=== PATIENT | male | born 1975 | race Two or more races ===

== ENCOUNTER 2017-12-13 07:31 | Inpatient (IN) | payer OTHER ==
[~2017-12-13] VITALS: Ht 160 cm; Wt 63.5 kg
[2017-12-13] VITALS (10 sets, daily range): BP systolic 138–163; BP diastolic 93–104
--- NOTE | 2017-12-13 06:14 | Immediate Post-Op Evaluation ---
Immediate Post-Op Evalulation Immediate Post-Op Evalulation Procedure: ACDF C4-5, C5-6 Date of Evaluation: Dec 13, 2017 Time of Evaluation: 11:52 IV Fluids: 1000 LR Blood Products: 0 Estimated Blood Loss: 50 Urinary Output: 0 Blood Pressure Systolic: 144 Blood Pressure Diastolic: 102 Pulse Rate: 86 Respiratory Rate: 16 O2 Sat by Pulse Oximetry: 100 Temperature (Fahrenheit): 97.6 Pain Score (1-10): 3 Nausea: No Vomiting: No Complications 0 Patient Status: awake, reacts, patent, extubated, none Hydration Status: adequate Dru Grams Ancef IV Given Within 1 Hr of Incision: Yes Time Given: 08:26 Don Apple MD Dec 13, 2017 06:14
[~2017-12-13 07:31] MED LIST: Acetaminophen (Non formulary) 100 ML IV ONE; Atropine Inj 1mg/10ml Syr IV PRN; Bacitracin 50000 Units Vial ONE; Dexamethasone 20mg/5ml IVP ONE; DiphenhydrAMINE 50mg/ml Inj IVP PRN; HYDROcodone/Acetamin 7.5/325 tab ORAL PRN; Hydromorphone 0.5mg/0.5ml inj IVP PRN; Ketorolac 30mg Inj IV PRN; LORazepam Inj 2mg/ml 1ml IV PRN; LR 1000ml 1,000 ML IVLG SCH; Labetalol 5mg/ml 20ml vial IV PRN; Lidocaine 1% Plain 30 ml INJ ONE; METFORMIN HCL500 M1 ORAL; Midazolam 2mg/2ml Inj IVP PRN; NORCO 10-325 T1 EACH ORAL; Norco 5mg/325mg tab ORAL PRN; Thrombin 5000 units TOPIC ONE; Vancomycin 1gm inj IVPB ONE; ceFAZolin sod 1 GM in NS 55 ML IVPB ONE; fentaNYL 100 mcg/2 mL IV PRN; oxyCODONE HCL/Acetaminophen 5/325mg ORAL PRN
[2017-12-13] MEDS ORDERED: Neostigmine 1mg/ml 10ml Inj ONE (08:00)
[2017-12-13] MEDS ORDERED: Lidocaine 1% Plain 30 ml INJ ONE (08:00)
[2017-12-13] MEDS ORDERED: Ketamine 500mg Inj ONE (08:00)
[2017-12-13] MEDS ORDERED: Lidocaine 1% MPF 10mg/ml 5ml ONE (08:00)
[2017-12-13] MEDS ORDERED: Midazolam 2mg/2ml Inj ONE (08:00)
[2017-12-13] MEDS ORDERED: Zemuron 50mg/5ml Inj IV ONE (08:00)
[2017-12-13] MEDS ORDERED: Labetalol 5mg/ml 20ml vial IV ONE (08:00)
[2017-12-13] MEDS ORDERED: fentaNYL 100 mcg/2 mL IV ONE (08:00)
[2017-12-13] MEDS ORDERED: Propofol 1,000mg/ 100ml btl IV ONE (08:00)
[2017-12-13] MEDS ORDERED: NS Irrig 1000ml ONE (08:00)
[2017-12-13] MEDS ORDERED: LR 1000ml ONE (08:00)
[2017-12-13] MEDS ORDERED: Sterile Water Irrig 1000ml IRRIG ONE (08:00)
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
--- NOTE | 2017-12-13 08:15 | Anethesia Preoperative Eval ---
Anesthesia Pre-op PMH/ROS General Date of Evaluation: Dec 13, 2017 Time of Evaluation: 08:01 Anesthesiologist: Ambika ASA Score: ASA 3 Mallampati Score Class I : Soft palate, uvula, fauces, pillars visible Class II: Soft palate, uvula, fauces visible Class III: Soft palate, base of uvula visible Class IV: Only hard plate visible Mallampati Classification: Class II Surgeon: Annette Diagnosis: Neck Pain Surgical Procedure: ACDF C4-5, C5-6 Anesthesia History: none Social History: current smoker Family History: no anesthesia problems Allergies: Coded Allergies: No Known Allergies (Unverified , 11/19/17) Medications: see eMAR Past Medical History Cardiovascular: Reports: HTN, other - HL Pulmonary: Reports: other - Smoker Endocrine: Reports: DM PSxH Narrative: Discogram Anesthesia Pre-op Phys. Exam Physician Exam Last Vital Signs Date Time Temp Pulse Resp B/P (MAP) Pulse Ox O2 Delivery O2 Flow Rate FiO2 12/13/17 07:56 97.7 83 20 144/93 98 Room Air 97.7 Constitutional: NAD Neurologic: CN 2-12 intact Cardiovascular: RRR Respiratory: CTA Gastrointestinal: S/NT/ND Airway Exam Mallampati Score: Class II MO: full ROM: limited Teeth: missing, intact, broken Anesthesia Pre-op A/P Risk Assessment & Plan Assessment: ASA 3 Plan: GA, BIS, GlideScope Status Change Before Surgery: No Pre-Antibiotics Dru Grams Ancef IV Given Within 1 Hr of Incision: Yes Time Given: 08:26 Don Apple MD Dec 13, 2017 08:15
--- NOTE | 2017-12-13 08:17 | 48 Hour Post Anesthesia Eval ---
Post Anesthesia Evaluation Procedure: ACDF C4-5, C5-6 Date of Evaluation: Dec 13, 2017 Time of Evaluation: 13:56 Blood Pressure Systolic: 151 0: 92 Pulse Rate: 82 Respiratory Rate: 18 Temperature (Fahrenheit): 98.2 O2 Sat by Pulse Oximetry: 98 Airway: patent Nausea: No Vomiting: No Pain Intensity: 3 Hydration Status: adequate Cardiopulmonary Status: Stable Mental Status/LOC: patient returned to baseline Follow-up Care/Observations: 0 Post-Anesthesia Complications: 0 Follow-up care needed: ready to discharge Don Apple MD Dec 13, 2017 08:17
--- NOTE | 2017-12-13 11:14 | Brief Operative Note ---
Immediate Post Operative Note Operative Note Pre-op Diagnosis: Post trauma neck pain, neurologic deficit Procedure: hemivertebrectomy C4, C5, C6 Tritanium Interbody graft, autograft/bio-4 fusion placement C4-5, C5-6 xray ssep emg anterior internal plate fixation correction deformity decompression high power magnification disection Post-op Diagnosis: same as pre-op Findings: consistent w/pre-op dx studies Surgeon: Annette Ph.D., M.D. Biology Specimen Technician: Anthony MEJIA Anesthesiologist: Ambika BROWN Anesthesia: general Specimen: yes Complications: none Condition: stable Fluids: anesthesia Estimated Blood Loss: minimal Drains: none Implant(s) used?: Yes DEVON FRANKEL Dec 13, 2017 11:14
--- NOTE | 2017-12-13 14:09 | Diagnostic Imaging Report ---
Indication: Left upper extremity pain, neck pain, intraoperative Technique: Intraoperative images Comparison: none Findings: Intraoperative images demonstrate surgical tool projected in the anterior aspect of the C5-6 disc. Subsequent images document anterior fusion with placement of disc spacers from through C6 Impression: Intraoperative imaging, as described
[2017-12-13] MEDS ORDERED: Chloraseptic Spray 20mL Bottle ORAL PRN (15:27)
[2017-12-13] MEDS ORDERED: HYDROcodone/Acetamin 10/325 tab ORAL PRN (15:29)
[2017-12-13] MEDS ORDERED: LORazepam 0.5mg tab ORAL PRN (15:29)
[2017-12-13] MEDS ORDERED: Naloxone 0.4mg/ml Inj IVP PRN (15:29)
[2017-12-13] MEDS ORDERED: D5 1/2NS 1,000 ML IV SCH (15:29)
[2017-12-13] MEDS ORDERED: HYDROmorphone 1mg/ml Carpuject SUBQ PRN (15:30)
[2017-12-13] MEDS ORDERED: Chloraseptic Spray 20mL Bottle ORAL ONE (16:30)
[2017-12-13] MEDS ORDERED: ceFAZolin sod 2 GM in D5W 110 ML IV SCH (16:30)
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
--- NOTE | 2017-12-13 20:00 | Operative Note - Dictated ---
SURGEON: Juan Bryant, Ph.D., M.D. BACK FILLER OPERATOR: JACKIE Osborn. ANESTHESIOLOGIST: Don Apple M.D. ANESTHESIA: General with intubation. ESTIMATED BLOOD LOSS: Minimal. FLUIDS: Please see anesthesia report. ADMITTING/PREOPERATIVE DIAGNOSES: 1. Posttraumatic cervical neck pain. 2. Radiculopathy. 3. Neurologic deficit. POSTOPERATIVE DIAGNOSES: 1. Posttraumatic cervical neck pain. 2. Radiculopathy. 3. Neurologic deficit. OPERATIVE PROCEDURE: 1. Anterior cervical interbody reconstruction fusion C4-C5, C5-C6, titanium with autograft and Bio-4 placement. 2. Correction deformity. 3. Anterior internal fixation. 4. SSEP monitoring. 5. EMG. 6. Intraoperative x-rays interpreted by surgeon. DESCRIPTION OF PROCEDURE: The patient was brought to the operating room and in supine position, general anesthesia with intubation was induced. IV antibiotics and IV Decadron were administered 30 minutes prior to incision time. After appropriate positioning, a spinal needle within the sheath-not penetrating the skin was taped to the right lateral aspect of the neck in the vertical position with a cross-table fluoroscopic imaging being obtained demonstrating the correct level for incision placement. Contralateral aspect of the neck was appropriately marked. Needle and sheath was removed. Anterior cervical spine was sterilely prepped and draped free in usual sterile fashion. Transverse left anterior lateral incision was sharply placed through dermis and epidermis. Electrocautery dissection was carried through the subcutaneous tissue to the level of the platysmas muscle, was identified isolated, and transected in line with the incision. Blunt dissection was carried medial to the left sternocleidomastoid muscle and the carotid sheath through the deep cervical and pretracheal fascia to the midline between the right and left longus colli muscles. Spinal needle bent at 90 degree angle so as to avoid penetration greater than 3 mm in the disk space was placed. It was placed in the disk space under direct observation-high power and a cross-table radiograph was obtained under sterile conditions demonstrating the correct level. Level was marked. Needle removed. Longus colli muscles elevated over their respective intervals. Retractors placed. C6-C7: Annulotomy was performed. Diskectomy to, but not through the posterior longitudinal ligament. Midas Blayne bur utilization for development of horizontal planes on the vertebral body endplates, inferior C5 and superior C6. Posterior longitudinal ligament resected. Trial of for placement of an artificial disk. Anatomy inadequate for appropriate apposition to the trial. Trial removed. Isidoro-vertebrectomy inferior C5, superior C6. Interpositional grafting appropriately dimensioned lordotic titanium graft containing autograft local bone and Bio-4 osteogenic material. Placed into excellent position under direct observation high powered. Cross-table image obtained demonstrating excellent alignment to placement. The patient had stable SSEP and EMGs at all times. Retractors were placed at the C4-C5 interval. Annulotomy performed. Midas Blayne bur dissection inferior C4 and superior C5 vertebral body. Trial for artificial disk replacement undertaken with the patient's anatomy not allowing for artificial disk placement. Isidoro-vertebrectomy performed in inferior C4 and superior C5. Interpositional grafting with the appropriately dimensioned lordotic titanium graft containing Bio-4 with local autograft bone. Tapped into excellent position. All traction on the neck (10 pounds) removed. Anterior internal plate fixation in a compressive fashion. Bilateral screws at C4, C5, and C6. Cross-table imaging obtained. Final radiograph obtained and printed demonstrating excellent alignment and positioning. Exploration of the incision revealed no obvious excoriation or laceration of vital structures. FloSeal applied followed with vancomycin powder deep to the platysmas muscle. Platysma muscle was reapproximated with Vicryl suture material. Subcuticular reapproximation with transverse surgical strips and Dermabond. The patient was awakened, extubated in the operating room, and transported to postop recovery in good stable condition. Juan Bryant M.D. DR: Nj JOB#: [id number] CC:
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
== END 2017-12-13 16:00 | disposition home or self-care (01) | DRG 473 ==
LOC: SUR 07:31 → 3E 15:21
PROC: 0RG20A0 Fusion of 2 or more Cervical Vertebral Joints with Interbody Fusion Device, Anterior Approach, Anterior Column, Open Approach (ICD-10-PCS; principal; 2017-12-13 07:00)
PROC: 4A11X4G Monitoring of Peripheral Nervous Electrical Activity, Intraoperative, External Approach (ICD-10-PCS; principal; 2017-12-13 07:00)
PROC: 01N10ZZ Release Cervical Nerve, Open Approach (ICD-10-PCS; principal; 2017-12-13 07:00)
PROC: 0RT30ZZ Resection of Cervical Vertebral Disc, Open Approach (ICD-10-PCS; principal; 2017-12-13 07:00)
DX: M50.122 Cervical disc disorder at C5-C6 level with radiculopathy (principal); I10 Essential (primary) hypertension; E11.9 Type 2 diabetes mellitus without complications; F17.200 Nicotine dependence, unspecified, uncomplicated; E78.5 Hyperlipidemia, unspecified; G89.18 Other acute postprocedural pain
CPT/HCPCS: 36415; 72040; 76001; 82962; 86850; 86900; 86901; 87081; 94003; 94150; J2250; J2405; J2710